=== PATIENT | female | born 1965 | race Caucasian/White ===

== ENCOUNTER 2024-09-08 13:31 | Emergency (ER) | payer OTHER, SELFPAY ==
[2024-09-08 13:38] VITALS: BP 165/103; PULSE 68; TEMP 36.6; O2SAT 99; BMI 41.2
--- NOTE | 2024-09-08 14:13 | CT_ITS ---
[facility] [place] [id number] Patient Name: CLARA PEREZ MRN: [id number] date: 1965 Sex: F Assigned Patient Location: ER Current Patient Location: ER Accession/Order Number: [id number] Exam Date: 09/08/2024 15:02 Report Date: 09/08/2024 15:04 At the request of: LAM SALCIDO Procedure: CT abdomen pelvis w con CT ABDOMEN AND PELVIS WITH INTRAVENOUS CONTRAST: CLINICAL HISTORY: llq abd pain COMPARISON: None TECHNIQUE: Spiral images were obtained through the abdomen and pelvis following the administration of intravenous contrast. This CT exam was performed using one or more following dose reduction techniques: Automated exposure control, adjustment of the mA and/or kV according to patient size, or use of iterative reconstruction technique. FINDINGS: Lung Bases: [No focal opacity] Organs:Liver, spleen, adrenals, kidneys, pancreas, gallbladder unremarkable.[ GI: Mild retained stool. No bowel obstruction. Mild colonic diverticulosis.[Appendix unremarkable. Pelvis:[Bladder unremarkable. Uterus and adnexal regions unremarkable. No adnexal mass.] Peritoneum/Retroperitoneum:No free air or free fluid.[Aorta normal caliber. Abd wall/Bones: Degenerative changes L4-5 facet joint with minimal anterolisthesis. CT/CT abdomen pelvis w con IMPRESSION: Negative acute inflammatory process or bowel obstruction. Impression dictated by: Scotty Hodges M.D. 09/08/2024 3:04 PM Dictation Location: [place] [address] Electronically authenticated by: [id number] Y Date: 09/08/2024 15:04
--- NOTE | 2024-09-08 14:16 | ED.GENADUL1 ---
HPI HPI - General Adult General Chief complaint: Nausea/Vomiting/Diarrhea Stated complaint: DIARRHEA Time Seen by Provider: 09/08/24 14:13 Source: patient Mode of arrival: walk-in Limitations: no limitations History of Present Illness HPI narrative: Patient presents to the emergency department with complaints of persistent diarrhea ongoing for the past 3 days. Patient states poor food intake due to abdominal pain and urge to defecate shortly after eating. Patient denies any associated vomiting. Patient states pain through the pelvic region and left lower quadrant of the abdomen. Patient does state that she had dysuria but believes it is because she was dehydrated. Patient has taken Pepto-Bismol the last taken this afternoon. Aleve taken this morning. Onset (ago): day(s) (3) Location: Reports abdomen Radiation: Reports non-radiation Severity: moderate Quality: Reports other (cramping) Pain Consistency: Reports intermittent Relieving factors: Reports none Exacerbating factors: Reports other (eating) Associated symptoms: Reports other (diarrhea) Related Data Home Medications ?Medication ?Instructions ?Recorded ?Confirmed atorvastatin 40 mg tablet 40 mg PO DAILY 09/08/24 09/08/24 esomeprazole magnesium 40 mg 40 mg PO DAILY 09/08/24 09/08/24 capsule,delayed release levothyroxine 50 mcg capsule 50 mcg PO DAILY 09/08/24 09/08/24 trazodone 100 mg tablet 100 mg PO DAILY 09/08/24 09/08/24 venlafaxine 75 mg tablet 75 mg PO DAILY 09/08/24 09/08/24 Previous Rx's ?Medication ?Instructions ?Recorded dicyclomine 20 mg tablet 20 mg PO QID PRN abdominal pain 09/08/24 #20 tabs Allergies Allergy/AdvReac Type Severity Reaction Status Date / Time No Known Drug Allergies Allergy Verified 09/08/24 13:42 Review of Systems ROS Status of ROS 10 or more systems reviewed and unremarkable except as noted in history and below Constitutional Reports: chills; Denies: fever Cardiovascular Denies: chest pain Gastrointestinal Reports: abdominal pain and diarrhea; Denies: nausea or vomiting Genitourinary Denies: urinary incontinence or blood in urine Integumentary/Breast Denies: rash Neurological Denies: headache PFSH PFSH Social History Little interest or pleasure in doing things: not at all Feeling down, depressed, or hopeless: not at all Exam Constitutional Vital Signs, click to edit/add: Last Vital Signs Temp 98 F 09/08/24 13:38 Pulse 56 L 09/08/24 16:10 Resp 18 09/08/24 16:10 BP 131/80 09/08/24 16:10 Pulse Ox 98 09/08/24 16:10 O2 Del Method Room Air 09/08/24 13:38 Documenting provider has reviewed patient's vital signs: yes Common normals: no apparent distress, average body habitus and oriented x3 General appearance: cooperative HENMT Common normals: normocephalic Respiratory Common normals: normal respiratory effort Cardio Common normals: no JVD and regular rate GI Common normals: soft to palpation Palpation: tender Details: LLQ, RLQ and RUQ Course Course Hospital Course: Patient had improvement in symptoms after IV fluids Vital Signs Vital signs: Vital Signs Temperature 98 F 09/08/24 13:38 Pulse Rate 68 09/08/24 13:38 Respiratory Rate 18 09/08/24 13:38 Blood Pressure 165/103 H 09/08/24 13:38 Pulse Oximetry 99 09/08/24 13:38 Oxygen Delivery Method Room Air 09/08/24 13:38 Temperature 98 F 09/08/24 13:38 Pulse Rate 56 L 09/08/24 16:10 Respiratory Rate 18 09/08/24 16:10 Blood Pressure 131/80 09/08/24 16:10 Pulse Oximetry 98 09/08/24 16:10 Oxygen Delivery Method Room Air 09/08/24 13:38 Medical Decision Making MDM Narrative Medical decision making narrative: Patient presented to the emergency department with a 3-day history of diarrhea. Patient had no associated vomiting though she did have pain to the left lower quadrant of the abdomen. Patient had no recent antibiotic usage to suggest C. difficile infection. Patient was hemodynamically stable and nontoxic but complained of feeling as if she was getting dehydrated so laboratory testing and IV fluids were obtained as well as CT abdomen pelvis. Given patient's complaint of dysuria urinalysis as well. Laboratory testing showed normal white count, no electrolyte abnormalities, CT scan without acute process, urinalysis without infection. Patient will be discharged home with Bentyl and PCP follow-up. Differential Diagnosis Differential Diagnosis: Colitis, diverticulitis, cystitis, pyelonephritis, dehydration, electrolyte Medical Records Medical records reviewed: Yes I reviewed the patient's medical records Lab Data Lab results reviewed: Yes I reviewed the patient's lab results Labs: Lab Results 09/08/24 09/08/24 Range/Units 14:23 16:07 WBC 5.4 (4.0-11.0) 10^3/uL RBC 4.37 (4.20-5.40) 10^6/uL Hgb 14.5 (12.0-16.0) g/dL Hct 41.5 (36.0-48.0) % MCV 95.0 (81.0-99.0) fL MCH 33.2 (26.7-34.0) pg MCHC 34.9 (29.9-35.2) g/dL RDW 11.9 (11.0-15.0) % Plt Count 283 (150-450) 10^3/uL MPV 9.7 (9.5-13.5) fL Neut % (Auto) 54.3 (43.0-75.0) % Lymph % (Auto) 30.1 (20.5-60.0) % [place] % (Auto) 10.9 (1.7-12.0) % Eos % (Auto) 3.9 (0.9-7.0) % Baso % (Auto) 0.6 (0.2-2.0) % Neut # (Auto) 3.0 (1.4-6.5) 10^3/uL Lymph # (Auto) 1.6 (1.2-3.8) 10^3/uL [place] # (Auto) 0.6 (0.3-0.8) 10^3/uL Eos # (Auto) 0.2 (0.0-0.7) 10^3/uL Baso # (Auto) 0.0 (0.0-0.1) 10^3/uL Abs Immat Gran (auto) 0.01 (0.00-0.03) 10^3/uL Imm/Tot Granulo (auto) 0.2 (0.0-0.5) % Sodium 144 (136-145) mmol/L Potassium 3.9 (3.5-5.1) mmol/L Chloride 106 (98-107) mmol/L Carbon Dioxide 29.3 (21.0-32.0) mmol/L Anion Gap 12.6 BUN 15.0 (7.0-18.0) mg/dL Creatinine 0.96 (0.55-1.02) mg/dL Est GFR ( Amer) >60 (>=60 mL/min/1.73m^2) Est GFR (Non-Af Amer) 60 (>=60 mL/min/1.73m^2) BUN/Creatinine Ratio 15.6 Glucose 95 (74-106) mg/dL Lactate 0.9 (0.4-2.0) mmol/L Calcium 10.0 (8.5-10.1) mg/dL Total Bilirubin 0.8 (0.2-1.0) mg/dL AST 33 (15-37) U/L ALT 74 H (14-59) U/L Alkaline Phosphatase 149 H (46-116) U/L Total Protein 7.6 (6.4-8.2) g/dL Albumin 4.2 (3.4-5.0) g/dL Globulin 3.4 g/dL Albumin/Globulin Ratio 1.2 Lipase 49.0 (16.0-77.0) U/L Urine Color Lt. yellow (YELLOW) Urine Clarity Clear (CLEAR) Urine pH 7.5 (5.0-9.0) Ur Specific [place] 1.010 (1.005-1.025) Urine Protein Negative (NEG/TRACE) mg/dL Urine Glucose (UA) Negative (NEGATIVE) mg/dL Urine Ketones Negative (NEGATIVE) mg/dL Urine Occult Blood Negative (NEGATIVE) Urine Nitrite Negative (NEGATIVE) Urine Bilirubin Negative (NEGATIVE) Urine Urobilinogen 0.2 (0.2-1.0) EU/dL Ur Leukocyte Esterase Negative (NEGATIVE) Urine RBC None seen (0-2) #/HPF Urine WBC None seen (NONE SEEN) #/HPF Ur Squamous Epith Cells None seen (NONE/RARE) #/LPF Urine Crystals None seen (None Seen) #/HPF Urine Bacteria None seen (NONE SEEN) #/HPF Urine Casts None seen (NONE SEEN) #/LPF Urine Mucus None seen (NONE SEEN) Ur Culture Indicated? No Imaging Data Abdominal x-ray: Attestation: I have reviewed the pertinent imaging results. Radiologist's impression: ITS Impressions Abdomen/Pelvis CT 09/08/24 14:13 IMPRESSION: Negative acute inflammatory process or bowel obstruction. Impression dictated by: Scotty Hodges M.D. 09/08/2024 3:04 PM Dictation Location: [place] [address] Electronically authenticated by: [id number] Y Date: 09/08/2024 15:04 Discharge Plan Discharge Chief Complaint: Nausea/Vomiting/Diarrhea Clinical Impression: Diarrhea Patient Disposition: Home, Self-Care Time of Disposition Decision: 16:33 Condition: Good Prescriptions / Home Meds: New dicyclomine 20 mg tablet 20 mg PO QID PRN (Reason: abdominal pain) Qty: 20 0RF No Action esomeprazole magnesium 40 mg capsule,delayed release(DR/EC) 40 mg PO DAILY venlafaxine 75 mg tablet 75 mg PO DAILY atorvastatin 40 mg tablet 40 mg PO DAILY trazodone 100 mg tablet 100 mg PO DAILY levothyroxine 50 mcg capsule 50 mcg PO DAILY Print Language: Irish Instructions: Acute Diarrhea (ED), Acute Abdominal Pain (ED) Referrals: Physician,Non-Staff, MD [Primary Care Provider] - 1 week
[2024-09-08] MEDS: DICYCLOMINE HCL 20 MG/2 ML VIAL IM (14:32)
[2024-09-08] MEDS: 0.9 % SODIUM CHLORIDE 1,000 ML 999 ML IV (14:32)
[2024-09-08 14:39] LABS: Hematocrit 41.5 % (36.0-48.0); Hemoglobin 14.5 g/dL (12.0-16.0); Immature Granulocytes Abs Auto 0.01 10^3/uL (0.00-0.03); Immature Granulocytes Pct Auto 0.2 % (0.0-0.5); Lymphocytes Absolute Auto 1.6 10^3/uL (1.2-3.8); Mean Corpuscular HGB Conc 34.9 g/dL (29.9-35.2); Mean Corpuscular Hemoglobin 33.2 pg (26.7-34.0); Mean Corpuscular Volume 95.0 fL (81.0-99.0); Platelet Count 283 10^3/uL (150-450); Red Blood Count 4.37 10^6/uL (4.20-5.40); White Blood Count 5.4 10^3/uL (4.0-11.0)
[2024-09-08 15:00] LABS: Lactate/Lactic Acid 0.9 mmol/L (0.4-2.0)
[2024-09-08 15:06] LABS: Alanine Aminotransferase 74 U/L (14-59); Albumin Globulin Ratio 1.2; Albumin Level 4.2 g/dL (3.4-5.0); Alkaline Phosphatase 149 U/L (46-116); Anion Gap 12.6; Aspartate Amino Transferase 33 U/L (15-37); Blood Urea Nitrogen 15.0 mg/dL (7.0-18.0); Calcium 10.0 mg/dL (8.5-10.1); Carbon Dioxide 29.3 mmol/L (21.0-32.0); Chloride 106 mmol/L (98-107); Estimated GFR (African America >60 (>=60 mL/min/1.73m^2); Estimated GFR (Non-African Ame 60 (>=60 mL/min/1.73m^2); Globulin 3.4 g/dL; Glucose 95 mg/dL (74-106); Lipase 49.0 U/L (16.0-77.0); Potassium 3.9 mmol/L (3.5-5.1); Sodium 144 mmol/L (136-145); Total Protein 7.6 g/dL (6.4-8.2)
[2024-09-08 16:10] VITALS: BP 131/80; PULSE 56; O2SAT 98
[2024-09-08 16:21] LABS: Glucose Urine UA NEGATIVE (NEGATIVE)
[2024-09-08 16:28] LABS: Cast Seen? NONE SEEN #/LPF (NONE SEEN); Crystals Seen? None Seen #/HPF (None Seen); Urine Culture Indicated NO
== END 2024-09-08 16:48 | disposition home or self-care (01) ==
PROVIDERS: Physician Assistant; Emergency Provider Emergency Medicine
DX: R19.7 Diarrhea, unspecified (principal); R10.32 Left lower quadrant pain
CPT/HCPCS: 36415; 74177; 80053; 81001; 83605; 83690; 85025; 96361; 96372; 96374; 99285; J0500; J2405; Q9967